=== PATIENT | female | born 1960 | race Caucasian/White ===

== ENCOUNTER 2022-06-16 07:49 | Outpatient (CLI) | payer OTHER, SELFPAY ==
[2022-06-16 10:45] LABS: Vitamin D 25 Hydroxy* 38 ng/mL (30-80)
== END 2022-06-16 07:50 | disposition home or self-care (01) ==
LOC: NFLDREF 07:50
PROVIDERS: PCP Internal Medicine; Visit Provider Internal Medicine
DX: M81.0 Age-related osteoporosis without current pathological fracture (principal)
CPT/HCPCS: 82306

== ENCOUNTER 2022-09-09 12:54 | Outpatient (CLI) | payer OTHER, SELFPAY | END 2022-09-09 12:55 | disposition home or self-care (01) | PROVIDERS: PCP Internal Medicine; Visit Provider Internal Medicine | DX: Z86.010 Personal history of colon polyps (principal) | CPT/HCPCS: 45378; J2250; J3010 ==

== ENCOUNTER 2022-12-23 11:23 | Outpatient (CLI) | payer OTHER, SELFPAY ==
--- NOTE | 2022-12-23 11:30 | CRLHL7_ITS ---
For Patients: As a result of the Century Cures Act, medical imaging exams and procedure reports are released immediately into your electronic medical record. You may view this report before your referring provider. If you have questions, please contact your health care provider. BILATERAL SCREENING MAMMOGRAM WITH COMPUTER-AIDED DETECTION AND TOMOSYNTHESIS TECHNIQUE: CC and MLO views were obtained. These mammographic images have been obtained using full-field digital technique. These mammographic images were interpreted with the benefit of computer-aided detection. Breast Tomosynthesis was used in this interpretation. COMPARISON FILM: 10/22/21, 07/08/20, 07/16/18. FINDINGS: The breasts are heterogeneously dense, which may obscure small masses IMPRESSION: There is no radiographic evidence for malignancy. ASSESSMENT: BI-RADS Category 1: Negative RECOMMENDATION: Routine screening mammogram in 1 year. A lay language report of this examination will be provided to the patient. Leighton Person M.D. Diagnostic Radiologist [email or web address] RICHARD/[email or web address] Transcribed: 3:10 [email or web address] [email or web address]/Dictated by: Leighton Person MD @ 12/26/2022 8:15:00 AM (Electronically Signed)
== END 2022-12-23 11:24 | disposition home or self-care (01) ==
PROVIDERS: PCP Internal Medicine; Visit Provider Internal Medicine
DX: Z12.31 Encounter for screening mammogram for malignant neoplasm of breast (principal); R92.2 Inconclusive mammogram
CPT/HCPCS: 77063; 77067

== ENCOUNTER 2023-08-15 12:46 | Outpatient (CLI) | payer OTHER, SELFPAY ==
--- NOTE | 2023-08-15 13:00 | XR_ITS ---
Patient: DAVID JARRETT Facility:?[facility] Patient ID:?[id number] Site Patient [id number]:?[id number]. Site :?[id number] Study:?DEXA-Bone Density Right DEXA - Spine/Hips-08/15/2023 1:22:08 PM Ordering Physician:RILEY Final Report: DXA BONE MINERAL DENSITY STUDY Reason for exam: Osteoporosis Current height (in): 63. Weight (lb): 110. Menopause age: 52. Ethnicity: White. 1. Have you had a previous hip or vertebral fracture? No. 2. Have you had any fractures during your adult life which did not result from significant trauma (e.g., auto accident)? No. 3. Did either of your parents have a hip fracture? No. 4. Do you smoke? No. 5. Have you ever taken Glucocorticoids? No. 6. Do you have rheumatoid arthritis? No. 7. Do you have secondary osteoporosis? No. 8. Do you drink 3 or more alcoholic drinks per day? No. 9. Are you being treated for osteoporosis? No. 10. Have you ever taken any of the following medications: Actonel, Evista, Fosamax, Miacalcin, Reclast, Boniva, Forteo, HRT (i.e., estrogen/hormone therapy), Protelos, Prolia, Vitamin D, Calcium, other ? please specify. ANSWER: Yes, Fosamax (i.e. alendronate), vitamin D, calcium, and Venlafaxine. 11. Do you have any of the following medical conditions: Anorexia or bulimia, asthma or emphysema, end stage renal disease, hyperparathyroidism, any seizure disorders, cancer, inflammatory bowel diseases, hysterectomy, other ? please specify. ANSWER: No. 12. What was your maximum height (inches)? 63. 13. Do you perform weight bearing exercise regularly? Yes. 14. Do you regularly consume dairy products? Yes. 15. Do you drink caffeinated beverages? Yes. If female: 16. At what age did your period start? 12. 17. Are you premenopausal? No. 18. How many full-term pregnancies have you had? 1. 19. Have you ever missed your period for more than 6 months in a row (not including or menopause)? Yes. TECHNIQUE: Bone mineral density study was performed using the [employer]. FINDINGS: The results of the study expressed as bone mineral density (BMD) are as follows: Lumbar spine L1 to L4: BMD: 0.814 g/cm2. T-score: -2.1. Z-score: -0.5 Neck Left: BMD: 0.578 g/cm2. T-score: -2.4. Z-score: -1.0 Right: BMD: 0.535 g/cm2. T-score: -2.8. Z-score: -1.4 Total Left: BMD: 0.711 g/cm2. T-score: -1.9. Z-score: -0.8 Right: BMD: 0.726 g/cm2. T-score: -1.8. Z-score: -0.7 IMPRESSION: Osteoporosis. *Comparison exams done prior to 11/2019 were performed on different unit, [employer]. COMPARISON: Compared with scan of07/08/2020, the bone mineral density has decreased by 1.8 percent at the spine and increased by 3.7 percent at the hip. Compared with scan of02/16/2017, the bone mineral density has increased by 1.3 percent at the spine and decreased by 0.7 percent at the hip. Leighton Person M.D. Diagnostic Radiologist [email or web address] RICHARD/[email or web address] farrukh/Dictated by: Leighton Person MD @ 08/16/2023 8:23:00 AM Signed by:?Leighton Person MD @08/17/2023 4:46:43 AM (Electronic Signature)
== END 2023-08-15 12:47 | disposition home or self-care (01) ==
PROVIDERS: PCP Internal Medicine; Visit Provider Internal Medicine
DX: M81.0 Age-related osteoporosis without current pathological fracture (principal)
CPT/HCPCS: 77080

== ENCOUNTER 2023-10-30 07:50 | Emergency (ER) | payer OTHER, SELFPAY ==
[2023-10-30 07:55] VITALS: BP 126/74; PULSE 73; RESP 16; TEMP 36.1; O2SAT 100; BMI 20.4
--- NOTE | 2023-10-30 08:11 | ED_ITS ---
HPI - Extremity Injury (Upper) General Chief Complaint: Extremity Pain/Injury, Upper Stated Complaint: left hand injury Time Seen by Provider: 10/30/23 07:52 History of Present Illness HPI narrative: This 63-year-old female comes in with an injury to her left hand and a concern that she may need to have her ring removed from her left ring finger. She was out running today and misstepped and fell causing several superficial abrasions to her left hand and some swelling of her fingers. She does not report any other injury except she has a scrape on her left knee. She did not hit her head or have loss of consciousness. Related Data Home Medications Medication Instructions Recorded Confirmed calcium carbonate 1,000 mg PO DAILY 06/21/22 07/03/23 cholecalciferol (vitamin D3) 25 1,000 unit PO DAILY 06/21/22 07/03/23 mcg (1,000 unit) capsule Previous Rx's Medication Instructions Recorded venlafaxine 150 mg 150 mg PO DAILY #90 caps 07/03/23 capsule,extended release 24 hr Allergies Allergy/AdvReac Type Severity Reaction Status Date / Time No Known Allergies Allergy Unknown Unverified 07/03/23 12:47 Review of Systems Status of ROS: Reports: 10 or more systems reviewed and unremarkable except as noted in History and below Narrative: Constitutional: No fevers, no weight gain or loss. Eyes: No discharge. No vision changes. HENT: No congestion, no sore throat, no ear pain. Cardiovascular: No chest pain, no palpitations. Respiratory: No shortness of breath, no wheezes, no cough. Gastrointestinal: No abdominal pain, no vomiting, no diarrhea. Genitourinary: No dysuria, no hematuria. Musculoskeletal: Normal range of motion. Skin: No rashes, no pruritis. Neurological: No dizziness, weakness, sensory change, speech change. Endo/Heme/Allergies: No bruising or bleeding. No polydipsia. Pysch: no suicidality, no anxiety, no insomnia. All other systems reviewed and are negative. [facility] Medical History (Updated 08/17/23 @ 12:06 by Sujata Celeste MD) History of endometriosis ?Z87.42 - Personal history of other diseases of the female genital tract (ICD-10) Social History (Updated 07/03/23 @ 15:23 by Gi Russell ~ CTA) What is your current living situation?: I presently have a place to live Problems where you live: no known problems In the past 12 months, utilities in danger of being shut off: no In past 12 months, lack of transportation kept you from medical appts, meetings, work, or getting things needed for daily living: no In the past 12 mos, have been you worried that your food would run out before you had money to buy more?: never true In the past 12 mos, the food you bought just didn't last and you didn't have money to buy more?: never true Smoking Status: Never smoker How often does anyone, including family, friends and others, physically hurt you : never How often does anyone, including family, friends and others, insult or talk down to you: never How often does anyone, including family, friends and others, threaten you with harm: never How often does anyone, including family, friends and others, scream or curse at you: never Little interest or pleasure in doing things: not at all Feeling down, depressed, or hopeless: several days Exam Narrative: Exam Narrative: Constitutional: Well-developed, well-nourished, no acute distress. HEENT: Normocephalic, atraumatic. Neck: Normal range of motion. Nontender. Supple. Heart: Intact distal pulses. Lungs: No chest discomfort. No wheezes, rhonchi, or rales. Abdomen: Nontender. Back: Normal range of motion. Extremities: Normal range of motion. Superficial abrasions on fingers of her left hand. Mild swelling. She has full range of motion of the fingers of her left hand. There is normal capillary refill and no compromise of nerve her motor function of her left ring finger. Skin: Intact. No rash. Warm. No erythema or pallor. Neurologic: No altered sensation. No weakness. Alert and oriented. Psychiatric: No suicidality. No anxiety or depression. No insomnia. Nursing notes and vitals signs are reviewed. Const: Vital Signs, click to edit/add: Vital Signs - 24 hr 10/30/23 07:55 Temperature 97.0 F L Pulse Rate [Right Pulse Oximeter] 73 Respiratory Rate 16 Blood Pressure [Ri ght Upper Arm] 126/74 Pulse Oximetry 100 Oxygen Delivery Me thod Room Air Course Vital Signs Vital signs: Initial Vital Signs Temperature 97.0 F L 10/30/23 07:55 Temperature Source Temporal Artery Scan 10/30/23 07:55 Pulse Rate 73 10/30/23 07:55 Pulse Rhythm Regular 10/30/23 07:55 Pulse Strength 3+ Normal 10/30/23 07:55 Respiratory Rate 16 10/30/23 07:55 Blood Pressure 126/74 10/30/23 07:55 Blood Pressure Mean 91 10/30/23 07:55 Blood Pressure Position Sitting 10/30/23 07:55 Pulse Oximetry 100 10/30/23 07:55 Oxygen Delivery Method Room Air 10/30/23 07:55 Vital Signs Temperature 97.0 F L 10/30/23 07:55 Pulse Rate 73 10/30/23 07:55 Respiratory Rate 16 10/30/23 07:55 Blood Pressure 126/74 10/30/23 07:55 Pulse Oximetry 100 10/30/23 07:55 Oxygen Delivery Method Room Air 10/30/23 07:55 Temperature 97.0 F L 10/30/23 07:55 Pulse Rate 73 10/30/23 07:55 Respiratory Rate 16 10/30/23 07:55 Blood Pressure 126/74 10/30/23 07:55 Pulse Oximetry 100 10/30/23 07:55 Oxygen Delivery Method Room Air 10/30/23 07:55 MDM - Extremity Injury (Upper) MDM Narrative Medical decision making narrative: This patient comes in with concern that she may need to have a ring removed from her left ring finger. It is a gold ring that she would prefer to keep. The patient has no paresthesias and no sign of vascular compromise currently. She has good capillary refill. She has applied some ice. This injury occurred about an hour and half prior to arrival. From my perspective it seems unlikely that her ring will cause an occlusive injury. I did describe signs and symptoms that would indicate need for removal of the ring. She is agreeable to this plan. I advised her to use anti-inflammatory medications along with elevation and icing. Discharge Plan Discharge Patient Disposition: Home, Self-Care Condition: Stable Additional Instructions: Use [id number] medicines as needed and directed. Use ice and keep hand elevated. Return if pain increases and there is poor capillary refill. Prescriptions: No Action calcium carbonate 500 mg calcium (1,250 mg) tablet 1,000 mg PO DAILY cholecalciferol (vitamin D3) 25 mcg (1,000 unit) capsule 1,000 unit PO DAILY venlafaxine 150 mg capsule,extended release 24hr 150 mg PO DAILY Qty: 90 3RF Follow Up/Referrals: Sujata Celeste MD [Primary Care Provider] - Stand Alone Forms: [employer] Info Instructions
--- OUTSIDE RECORDS SUMMARY | 2023-10-30 08:16 | XMS_ITS | Clinical Summary ---
Author Name Unknown Organization [facility] Address [place], [place] [address] Care Team Providers Care Deli Cook Name Role Phone Gualberto Peterson MD Primary Care Provider Family History Medical History Relation Name Comments Cancer-prostate Father Cancer No Family History Cancer-breast No Family History Cancer-colon No Family History Cancer-ovarian No Family History Relation Name Status Comments Father Social History Tobacco Use Types Packs/Day Years Used Date Smoking Tobacco: Never Assessed Sex and Gender Information Value Date Recorded Sex Assigned at Not on file Gender Identity Not on file Sexual Orientation Not on file Obstetrics History Plan of Treatment Not on file Care Teams Deli Cook Relationship Specialty Start Date End Date Gualberto Peterson MD PCP - General Family Practice 10/20/10
== END 2023-10-30 08:21 | disposition home or self-care (01) ==
PROVIDERS: Emergency Provider Emergency Medicine Emergency Medical Services; PCP Internal Medicine
DX: S63.615A Unspecified sprain of left ring finger, initial encounter (principal); W01.0XXA Fall on same level from slipping, tripping and stumbling without subsequent striking against object, initial encounter
CPT/HCPCS: 99282; 99284

== ENCOUNTER 2024-07-04 08:08 | Outpatient (CLI) | payer BC, SELFPAY | END 2024-07-04 08:09 | disposition home or self-care (01) | LOC: NFLDREF 07-17 01:32 | PROVIDERS: PCP Internal Medicine; Referring Provider Internal Medicine; Visit Provider Internal Medicine | DX: M81.0 Age-related osteoporosis without current pathological fracture (principal) | CPT/HCPCS: 82306 ==

== ENCOUNTER 2024-07-09 11:24 | Outpatient (CLI) | payer BC, SELFPAY ==
--- NOTE | 2024-07-09 11:30 | CRLHL7_ITS ---
For Patients: As a result of the Century Cures Act, medical imaging exams and procedure reports are released immediately into your electronic medical record. You may view this report before your referring provider. If you have questions, please contact your health care provider. BILATERAL SCREENING MAMMOGRAM WITH COMPUTER-AIDED DETECTION AND TOMOSYNTHESIS TECHNIQUE: CC and MLO views were obtained. These mammographic images have been obtained using full-field digital technique. These mammographic images were interpreted with the benefit of computer-aided detection. Breast Tomosynthesis was used in this interpretation. COMPARISON FILM: 12/23/22, 10/22/21, 07/08/20. FINDINGS: The breasts are heterogeneously dense, which may obscure small masses. IMPRESSION: There is no radiographic evidence for malignancy. ASSESSMENT: BI-RADS Category 1: Negative RECOMMENDATION: Routine screening mammogram in 1 year. A lay language report of this examination will be provided to the patient. Mathew Mohr M.D. Diagnostic/Nuclear Medicine Radiologist [email or web address] DONAVAN/[email or web address] SP/Dictated by: Mathew Mohr MD @ 07/11/2024 9:13:00 AM (Electronically Signed)
== END 2024-07-09 11:25 | disposition home or self-care (01) ==
LOC: MAMMO 11:24
PROVIDERS: PCP Internal Medicine; Visit Provider Internal Medicine
DX: Z12.31 Encounter for screening mammogram for malignant neoplasm of breast (principal); R92.333 Mammographic heterogeneous density, bilateral breasts
CPT/HCPCS: 77063; 77067